=== PATIENT | male | born 1945 | race Caucasian/White ===

== ENCOUNTER 2020-11-02 15:40 | Emergency (ER) | payer MEDICARE, OTHER ==
[~2020-11-02] VITALS: Ht 210.8 cm; Wt 76.2 kg
[2020-11-02] MEDS ORDERED: BLEPH-105 ML OPTH (16:29)
== END 2020-11-02 16:37 | disposition home or self-care (01) ==
LOC: ED 15:40
DX: H11.32 Conjunctival hemorrhage, left eye (principal)
CPT/HCPCS: 99283

== ENCOUNTER 2025-04-04 16:55 | Emergency (ER) | payer MEDICARE, OTHER ==
[~2025-04-04] VITALS: Ht 210.8 cm; Wt 73.0 kg
[~2025-04-04 16:55] MED LIST: BLEPH-105 ML OPTH
[2025-04-04 20:16] LABS: BASOPHILS 0.7 % (0.2-1.2); EOSINOPHILS 2.0 % (0.8-7.0); LYMPHOCYTES 15.4 % (21.8-53.1); MCH 30.6 PG (25.7-32.2); MCHC 35.3 g/dL (32.3-36.5); MCV 86.7 fL (79.0-92.2); MONOCYTES 9.7 % (5.3-12.2); NEUTROPHILS 71.5 % (34.0-67.9); RBC 4.81 M/uL (4.63-6.08)
[2025-04-04 21:22] LABS: ERYTHROCYTE SEDIMENTATION RATE 7
[2025-04-04] MEDS ORDERED: HYDROCODONE BIT/ACETAMINOPHEN 5/325 MG 1 TAB HOME.PACK PO ONE (21:30)
[2025-04-04] MEDS ORDERED: methylPREDNISolone 4 MG HOME.PACK PO ONE (21:30)
[2025-04-04] MEDS ORDERED: PREGABALIN 75 MG CAP PO ONE (21:30)
[2025-04-04] MEDS ORDERED: LYRICA75 MG PO (21:33)
[2025-04-04] MEDS ORDERED: HYDROCODON-ACE1 EA10 PO (21:33)
[2025-04-04 21:53] VITALS: BP 148/93
== END 2025-04-04 21:53 | disposition home or self-care (01) ==
LOC: ED 16:55
PROVIDERS: Family Medicine
DX: B02.23 Postherpetic polyneuropathy (principal)
CPT/HCPCS: 36415; 70450; 85025; 85651; 86140; 99283-25; A9270